=== PATIENT | female | born 1990 | race Caucasian/White ===

== ENCOUNTER → 2021-06-22 | Outpatient (CLI) | payer BC ==
[2021-06-22 12:56] LABS: BASO % 1 % (0-3); EOS # 0.1 x10^3/uL (0.0-0.7); EOS % 1 % (0-3); HEMATOCRIT 35.7 % (36.0-47.0); LYMPH # 1.9 x10^3/uL (1.0-4.8); LYMPH % 29 % (24-48); MEAN CORPUSCULAR HEMOGLOBIN 30 pg (25-35); MEAN CORPUSCULAR HGB CONC 34 g/dL (31-37); MEAN CORPUSCULAR VOLUME 89 fL (79-100); MONO # 0.4 x10^3/uL (0.0-1.1); MONO % 6 % (0-9); NEUT # 4.1 x10^3/uL (1.8-7.7); NEUT % 63 % (31-73); PLATELET COUNT 242 x10^3/uL (140-400); RED CELL DISTRIBUTION WIDTH 12.5 % (11.5-14.5); WHITE BLOOD COUNT 6.5 x10^3/uL (4.0-11.0)
== END ==
LOC: LAB 11:41
PROVIDERS: ATTEND Registered Nurse
DX: Z32.00 Encounter for pregnancy test, result unknown (principal)
CPT/HCPCS: 36415; 85025; 86592; 86703; 86706; 86762; 86803; 86900; 86901

== ENCOUNTER 2021-09-04 10:30 | Observation (INO) | payer BC ==
[~2021-09-04] VITALS: Ht 167.6 cm; Wt 92.3 kg
[2021-09-04] MEDS ORDERED: ZOLPIDEM 5 MG TABLET. PO PRN (11:00)
[2021-09-04] MEDS ORDERED: ACETAMINOPHEN 325 MG TABLET. PO PRN (11:00)
[2021-09-04] MEDS ORDERED: MAG HYDROX/ALUMINUM HYD/SIMETH 30 ML ORAL.SUSP PO PRN (11:00)
[2021-09-04] MEDS ORDERED: IV RINGERS,LACTATED 500ML 500 ML IV PRN (11:00)
[2021-09-04] MEDS ORDERED: PROCHLORPERAZINE 10 MG/2 ML VIAL. IM PRN (11:00)
[2021-09-04] MEDS ORDERED: IV DEXTROSE 5%-LACT RINGERS 1,000 ML IV SCH (11:00)
[2021-09-04] MEDS ORDERED: 0.9 % SODIUM CHLORIDE 10 ML DISP.SYRIN. IV PRN (11:00)
[2021-09-04] MEDS ORDERED: ONDANSETRON PF 4 MG/2 ML VIAL. IVP PRN (11:00)
[2021-09-04] MEDS ORDERED: IV RINGERS,LACTATED 1000ML 1,000 ML IV SCH (11:30)
[2021-09-04 11:34] LABS: HEMATOCRIT 33.1 % (36.0-47.0); HEMOGLOBIN 11.5 g/dL (12.0-15.5); RED BLOOD COUNT 3.66 x10^6/uL (3.50-5.40); RED CELL DISTRIBUTION WIDTH 13.1 % (11.5-14.5); WHITE BLOOD COUNT 7.2 x10^3/uL (4.0-11.0)
[2021-09-04 11:37] LABS: AMYLASE 36 U/L (25-115); LIPASE 72 U/L (73-393)
[2021-09-04] MEDS ORDERED: ALPRAZolam 1 MG TABLET PO ONE (11:45)
[2021-09-04] MEDS ORDERED: SODIUM PHOSPHATES 19/7GM 133 ML ENEMA. PR ONE (11:45)
[2021-09-04 11:48] LABS: ALBUMIN/GLOBULIN RATIO 0.7 (1.0-1.7); CALCIUM 8.7 mg/dL (8.5-10.1); CREATININE 0.7 mg/dL (0.6-1.0); GFR 99.6; POTASSIUM 3.4 mmol/L (3.5-5.1); TOTAL BILIRUBIN 0.4 mg/dL (0.2-1.0); TOTAL PROTEIN 7.4 g/dL (6.4-8.2)
[2021-09-04 11:53] LABS: BACTERIA,URINE FEW /HPF (0-FEW); RBC,URINE OCC /HPF (0-2); WBC,URINE OCC /HPF (0-4)
--- NOTE | 2021-09-04 12:04 | PDOC1 ---
[facility] H&P Date of Admission: Date of Admission: September 04, 2021 at 10:30 History of Present Illness: [id number] presents at 23.4 weeks with complaints of intractable nausea/vomiting x 24 hours. Unable to tolerate clear liquids. c/b h yperemesis - previously resolved. Pt. reports feeling well early this week. Has used zofran odt one dose daily for the previous three days - she is concerned that this may have caused constipation. Began feeling ill yesterday, initially with nausea, anorexia, and abdominal distention, followed by onset of emesis which has persisted. Now vomits with sips of clear liquids. Endorses intermittent epigastric cramping/discomfort, worse after emesis. Has experienced scant amounts of liquid stool, aside from small amount of small hard stool a couple of days ago - unaware of last normal BM. Denies fever/chills. No RLQ pain. No UCs, LOF. Active baby. No dysuria, urgency, frequency. Otherwise denies complaints. Past Medical History: Cardiovascular: No pertinent hx Pulmonary: No pertinent hx GI: No pertinent hx Heme/Onc: No pertinent hx Hepatobiliary: No pertinent hx Psych: No pertinent hx Rheumatologic: No pertinent hx Infectious disease: No pertinent hx ENT: No pertinent hx Renal/: No pertinent hx Endocrine: No pertinent hx Dermatology: No pertinent hx Grav: 2 Para: 1 Allergies: Coded Allergies: No Known Drug Allergies (Unverified , 09/04/21) Physical Exam: PE: GENERAL: No apparent distress. Alert and oriented. HEENT: Head normocephalic, atraumatic. NECK: Supple LUNGS: Clear to auscultation. HEART: RRR, S1, S2 present, pulses intact ABDOMEN: Soft, positive bowel sounds. EXTREMITIES: No cyanosis or edema. NEUROLOGIC: Normal speech, normal tone PSYCHIATRIC: Normal affect, normal mood. SKIN: No ulceration. Labs: Laboratory Tests Test 09/04/21 11:15 White Blood Count 7.2 x10^3/uL (4.0-11.0) Red Blood Count 3.66 x10^6/uL (3.50-5.40) Hemoglobin 11.5 g/dL (12.0-15.5) L Hematocrit 33.1 % (36.0-47.0) L Mean Corpuscular Volume 91 fL (79-100) Mean Corpuscular Hemoglobin 32 pg (25-35) Mean Corpuscular Hemoglobin Concent 35 g/dL (31-37) Red Cell Distribution Width 13.1 % (11.5-14.5) Platelet Count 195 x10^3/uL (140-400) Amylase Level 36 U/L (25-115) Lipase 72 U/L (73-393) L Laboratory Tests 09/04/21 11:15 Laboratory Tests 09/04/21 11:15 Assessment & Plan: ddx: viral gastroenteritis vs constipation/impaction. Pt. amenable to enema. Labs pending. Plan fluid replacement, anti-emetic, fleets enema. Advance diet as susan. JAMES ABRAHAM CNM September 04, 2021 12:04
[2021-09-04] MEDS ORDERED: CETI10TA74 PO (14:15)
[2021-09-04] MEDS ORDERED: MONT10TA49 PO (14:18)
[2021-09-04] MEDS ORDERED: FAMO40TA4 PO (14:20)
[2021-09-04] MEDS ORDERED: PANT40TA77 PO (14:20)
[2021-09-04] MEDS ORDERED: DOXY1TAB3 PO (14:26)
[2021-09-04] MEDS ORDERED: QUET25TA5 PO (14:38)
[2021-09-04] MEDS ORDERED: CITRIC ACID/SODIUM CITRATE 30 ML SOLUTION. PO ONE (14:45)
[2021-09-04] MEDS ORDERED: MECL-75 PO (14:47)
[2021-09-04] MEDS ORDERED: OMEG-152 PO (14:50)
[2021-09-04] MEDS ORDERED: DULO60CA7 PO (16:33)
[2021-09-04] MEDS ORDERED: PNV1TABL25 PO (16:39)
[2021-09-04] MEDS ORDERED: OMEG100021 PO (16:42)
[2021-09-04] MEDS ORDERED: ONDA-84 PO (16:45)
[2021-09-04] MEDS ORDERED: METO10TA81 PO (16:47)
[2021-09-05] MEDS ORDERED: PRENATAL MULTIVITAMIN TABLET. PO SCH (09:00)
== END 2021-09-04 15:45 | disposition home or self-care (01) ==
LOC: 3 SO LND 10:30
PROVIDERS: ADMIT Registered Nurse; ATTEND Registered Nurse
DX: O21.2 Late vomiting of pregnancy (principal); Z3A.23 23 weeks gestation of pregnancy; Z79.899 Other long term (current) drug therapy
CPT/HCPCS: 36415; 59025; 80053; 81001; 82150; 83690; 84443; 85027; 96360; 96361; 96372; G0378; G0379; J0780; J7120; J7121